=== PATIENT | male | born 1955 | race Caucasian/White ===

== ENCOUNTER 2020-12-01 20:00 | Emergency (ER) | payer OTHER, MEDICARE ==
[~2020-12-01] VITALS: Ht 182.9 cm; Wt 74.8 kg
[2020-12-01 20:19] LABS: EOSINOPHILS 2.3 % (0.0-3.0); HEMATOCRIT 44.6 % (42.0-52.0); HEMOGLOBIN 15.4 gm/dL (14.0-18.0); LYMPHOCYTES 16.6 % (24.0-44.0); MCH 32.5 pg (26.0-34.0); MCHC 34.5 g/dL (28.0-37.0); MONOCYTES 7.5 % (1.0-8.0); PLATELET COUNT 287 thou/uL (150-400); POLYS 72.6 % (36.0-66.0); RBC 4.74 mil/uL (4.50-6.00); RDW 14.2 % (10.5-14.5); WBC 6.9 thou/uL (4.0-11.0)
[2020-12-01 20:25] LABS: CALCIUM 10.1 mg/dL (8.5-10.1); CREATININE 1.2 mg/dL (0.7-1.3)
[2020-12-01 20:31] LABS: ALBUMIN 4.2 g/dL (3.4-5.0); DIRECT BILIRUBIN 0.2 mg/dL (<0.1-0.2); TOTAL BILIRUBIN 0.7 mg/dL (0.2-1.0); TOTAL PROTEIN 8.2 g/dL (6.4-8.2)
[2020-12-01] MEDS ORDERED: PROTONIX40 M2 PO (21:53)
[2020-12-02] VITALS: BP 130/87
== END 2020-12-02 | disposition home or self-care (01) ==
LOC: ER 20:00
PROVIDERS: Emergency Medicine
DX: T18.128A Food in esophagus causing other injury, initial encounter (principal); Z20.822 Contact with and (suspected) exposure to COVID-19; K21.9 Gastro-esophageal reflux disease without esophagitis; X58.XXXA Exposure to other specified factors, initial encounter; Y93.89 Activity, other specified; Y92.89 Other specified places as the place of occurrence of the external cause; Y99.9 Unspecified external cause status
CPT/HCPCS: 62110; 62900; 65130; 70005

== ENCOUNTER → 2021-02-15 | Outpatient (CLI) | payer OTHER, MEDICARE ==
[~2021-02-15] VITALS: Ht 182.9 cm; Wt 77.1 kg
[~2021-02-15] MED LIST: NORVASC5 MG PO; PROTONIX40 M2 PO; REQUIP 1 MG TABL1 M1 PO
--- NOTE | 2021-02-16 16:06 | PATH ---
[facility] [place] [address] [place] [address] PATHOLOGY RPT PROCEDURE Name: PAIGE OSORIO QUIQUE Room #: REG MILVIA Taylor.#: [id number] Admission: 02/15/21 Date of : 51 Discharge: Report #: [id number] Path Case #: [id number] [facility] Accession Number: [id number] . 01 Material submitted: . PART A: gastrointestinal site - GASTRIC ANTRUM R/O H. PYLORI PART B: esophagus - DISTAL ESOPHAGUS FOR EOSINOPHILIC ESOPHAGITIS. Modifiers: distal PART C: esophagus - MID ESOPHAGUS R/O EOE. Modifiers: mid . 01 Clinical history: . EGD/PAST FOOD IMPACTION SURVEILLANCE/6 WK FU CHECKING HEALING . 02 Diagnosis: A. Gastric mucosa, gastric antrum R/O H. pylori, endoscopic biopsy: - Mild chronic active gastritis with features of reactive gastropathy. - Negative for intestinal metaplasia or atrophy. - Negative for Helicobacter pylori (properly controlled immunohistochemical stain performed). . B. Gastroesophageal mucosa, distal esophagus R/O eosinophilic esophagitis, endoscopic biopsy: - Squamous mucosa with mild focal increase in intraepithelial eosinophils up to 5/hpf. - Gastric mucosa with moderate chronic inflammation. - Negative for intestinal metaplasia or dysplasia. . C. Squamous mucosa, mid esophagus, endoscopic biopsy: - Mild active esophagitis with rare eosinophils (1-2/hpf). - No increase in intraepithelial eosinophils within the mucosa. - Negative for intestinal metaplasia or dysplasia. (IUV:sumeet; 02/16/2021) S 02/16/2021 1318 Local . 02 Electronically signed: . Pat Mckoy MD, Pathologist NPI- [id number] . 01 Gross description: . A. The specimen is received in formalin, labeled "Paige Osorio, gastric antrum". Received are 2 segments of pale posada tissue ranging in size from 0.5 to 0.6 cm in maximum dimensions. The specimen is submitted entirely in cassette A1. . B. The specimen is received in formalin, labeled " Paige Osorio, distal esophagus". Received are 2 segments of pale posada tissue ranging in size from 0.4 to 0.5 cm in maximum dimensions. The specimen [place] [address] PATHOLOGY RPT PROCEDURE Name: PAIGE OSORIO Room #: REG CLI Augustin#: [id number] Admission: 02/15/21 Date of : 51 Discharge: Report #: [id number] Path Case #: [id number] entirely in cassette B1. . C. The specimen is received in formalin, labeled "Osorio, Paige, mid esophagus". Received are 4 segments of pale posada tissue ranging in size from 0.2 cm to 0.4 cm in maximum dimensions. The specimen is submitted entirely in cassette C1.([facility]; 02/15/2021) [facility] 02/15/2021 1611 Local . 02 Pathologist provided ICD-10: K29.50, K20.90 . 02 CPT . 564886, [id number], 393989, [id number] Specimen Comment: A courtesy copy of this report has been sent to [phone] Specimen Comment: [id number] Specimen Comment: Report sent to / DR GROVER Performed at: [address] [id number] MD Simón Mora MD Phone: [phone] Performed at: [address] [id number] MD Pat Mckoy MD Phone: [phone]
== END | disposition home or self-care (01) ==
LOC: GI 08:50
PROVIDERS: ATTEND Internal Medicine Gastroenterology
DX: R13.10 Dysphagia, unspecified (principal); K29.50 Unspecified chronic gastritis without bleeding; K31.9 Disease of stomach and duodenum, unspecified; K22.2 Esophageal obstruction; K21.00 Gastro-esophageal reflux disease with esophagitis, without bleeding; K44.9 Diaphragmatic hernia without obstruction or gangrene; R12 Heartburn; I10 Essential (primary) hypertension; M10.9 Gout, unspecified; M19.90 Unspecified osteoarthritis, unspecified site; Z98.890 Other specified postprocedural states; Z79.899 Other long term (current) drug therapy
CPT/HCPCS: 62110; 62900